=== PATIENT | female | born 1985 | race Caucasian/White ===

== ENCOUNTER 2021-05-07 13:41 | Emergency (ER) | payer MEDICAID ==
[~2021-05-07] VITALS: Ht 162.6 cm; Wt 68.5 kg
[2021-05-07 14:00] VITALS: BP 116/61
[2021-05-07] MEDS ORDERED: PROAIR HFA8.5 GM INH (14:08)
[2021-05-07] MEDS ORDERED: SYMBICORT160 MCG/4. INH (14:08)
== END 2021-05-07 14:35 | disposition left against medical advice (07) ==
LOC: M.ERS 13:41
DX: Z53.21 Procedure and treatment not carried out due to patient leaving prior to being seen by health care provider (principal)